=== PATIENT | female | born 1995 | race Caucasian/White ===

== ENCOUNTER → 2016-09-08 | Outpatient (REF) | LOC: COL.CARD 15:06 | DX: R00.2 Palpitations (principal) ==

== ENCOUNTER → 2017-01-18 | Outpatient (REF) ==
[2017-01-18 19:55] LABS: THYROID STIMULATING HORMONE 1.79 uIU/mL (0.465-4.680)
== END ==
LOC: ZLAB.WCH 18:51
PROVIDERS: Nurse Practitioner Family
DX: Z01.89 Encounter for other specified special examinations (principal)

== ENCOUNTER → 2017-10-03 | Outpatient (REF) | LOC: ZLAB.WCH 18:12 | DX: Z01.89 Encounter for other specified special examinations (principal) ==

== ENCOUNTER 2021-12-09 13:23 | Inpatient (IN) | payer MEDICAID ==
[~2021-12-09] VITALS: Ht 154.9 cm; Wt 63.0 kg
[2021-12-09] MEDS ORDERED: NORCO 325 MG-51 TAB PO (13:43)
[2021-12-09] MEDS ORDERED: EFFEXOR-XR150 MG PO (13:43)
[2021-12-09 13:55] VITALS: BP 115/63; PULSE 77; TEMP 97.5
[2021-12-09 15:57] VITALS: BP 117/70; PULSE 73; TEMP 98.2
--- NOTE | 2021-12-09 18:56 | NUR ---
RECEIVED CHANGE OF SHIFT REPORT FROM DAY SHIFT RN.
[2021-12-09 19:33] VITALS: BP 116/61; PULSE 82; TEMP 99.1
[2021-12-09 23:14] VITALS: BP 109/62; PULSE 82; TEMP 98.4
[2021-12-10] VITALS (365 sets, daily range): BP systolic 108–153; BP diastolic 61–84; PULSE 85–170; TEMP 98.3–102.4; O2SAT 94–100
--- NOTE | 2021-12-10 07:10 | NUR ---
CHANGE OF SHIFT REPORT GIVEN TO DAY SHIFT TONIA INMAN.
--- NOTE | 2021-12-10 07:56 | NUR ---
Patient reports elevated pain, morphine for pain per orders. She reports toradol not relieving pain. Clear liquids without nausea. kpad provided for her discomfort. rounded plan of care reviewed.
--- NOTE | 2021-12-10 08:35 | NUR ---
Call from [facility], vital signs change made aware. Febrile,tachycardia. Blood pressure stable. Patient nauseated. Shivering. Pale in color.
--- NOTE | 2021-12-10 08:38 | NUR ---
Patient had a change in status. Called , no answer. message left
--- NOTE | 2021-12-10 08:40 | NUR ---
Danyel cab[facility]owarehouse traffic supervisor called to room 350. She was made aware of patient status. She called CAT call, ICU charge nurse Radha to assist with patient cares.
--- NOTE | 2021-12-10 08:52 | NUR ---
Called office nurse called and made her aware that I needed to given update to . She was to [facility].
--- NOTE | 2021-12-10 09:02 | NUR ---
Hospitalist at bedside. Pharmacy at bedside. Orders being obtained. RT at bedside. Lab attempting lab draw. Darya remain at bedside caring for patient.
--- NOTE | 2021-12-10 09:02 | NUR ---
Patients experienced a decline in status this morning. SW contacted the patient's who states that he will make arrangements for their children and make his way up here. supervisor cutting and sewing room notified.
--- NOTE | 2021-12-10 09:07 | NUR ---
made aware of Patient being transferred to ICU 2. I spoke with Basia about needing stent placment, she was already aware, spoke with her. I also talked with Quinn HERNANDEZ He is aware lab was unable to draw the labs.
[2021-12-10 09:39] LABS: HEMOGLOBIN 10.2 g/dl (12.5-16.0); MEAN CELL VOLUME 88 fl (80.0-100.0); MEAN CORPUSCULAR HEMOGLOBIN 29 pg (27-31); MEAN CORPUSCULAR HGB CONC 33 g/dl (33.0-37.0); MEAN PLATELET VOLUME 10.2 fl (7.4-10.4); PLATELET COUNT 144 K/mm3 (130-400); RED BLOOD COUNT 3.52 M/mm3 (4.10-5.30); REDCELL DISTRIBUTION WIDTH-CV 13.2 % (11.5-14.5)
[2021-12-10 09:40] LABS: HEMATOCRIT 30.8 % (37.0-47.0)
[2021-12-10 09:55] LABS: CALCIUM 8.5 mg/dL (8.4-10.2); CREATININE, serum 0.65 mg/dL (0.57-1.11); POTASSIUM 3.3 mmol/L (3.5-4.5)
--- NOTE | 2021-12-10 10:47 | NUR ---
0850- CALLED TO HELP IN ROOM 350 FOR TACHYCARDIA AND POSSIBLE SEPSIS. PT WAS AX0X4, TEMP 102, HR 170'S, BP 130'S, AND 97% ON RA. EKG DONE AND PT PLACED ON TELE SHOWING SVT. LABS ORDER PER DR BAUMAN. IV METOPROLOL AND IVF GIVEN. PT'S HR DOWN TO 130 AFTER METOPROLOL. PT TRANSFERED TO ICU 2. CONNER PLACED, URINE SENT, COVID SENT, PICC PLACED AND LABS DRAWN. BEDSIDE AND PLAN TO TAKE TO OR FOR STENT. ABX HUNG AFTER BC DRAWN. PT TAKEN TO OR AT 0941.
--- NOTE | 2021-12-10 11:30 | NUR ---
Patient has returned from OP. PICC sterile dressing change done with insertion site cleansed with chloraprep x 1, catheter pulled back to 3 cm marking on catheter. CHG dressing applied, skin prep, stat lock, and tegaderm applied.
--- NOTE | 2021-12-10 11:39 | NUR ---
1100-PT BACK FROM OR. PT IS AXOX4. PT'S VSS. PT SR AT 100. PT STATES PAIN IS MUCH BETTER. 1140-PT GIVEN BREAST PUMP FROM OB.
[2021-12-10 16:38] LABS: COLLECTION METHOD IN
[2021-12-10 16:51] LABS: MUCOUS Present (NOT PRESENT); SQUAMOUS EPITHELIAL None Seen /hpf (0-10); URINE BACTERIA None Seen /hpf (NONE SEEN); URINE RBC >50 /hpf (0-2)
[2021-12-10 16:53] LABS: URINE APPEARANCE Cloudy (CLEAR/HAZY); URINE BLOOD 3+ (NEGATIVE); URINE COLOR Yellow (YELLOW); URINE GLUCOSE Negative (NEGATIVE); URINE KETONE Negative (NEGATIVE); URINE NITRATE Negative (NEGATIVE); URINE PROTEIN(semi-quant) 1+ (NEGATIVE); URINE UROBILINOGEN 0.2 E.U/dL (0.2-1.0)
--- NOTE | 2021-12-10 17:49 | NUR ---
1710-REPORT CALLED TO BOGDAN INMAN. ALL QUESTIONS ANSWERED. PT CHANGED TO TELE BOX. PT AMBULATED TO WHEELCHAIR. PT TRANSFERED TO [facility] WITH ALL BELONGINGS AND FAMILY. BOGDAN INMAN MEET BEDSIDE.
--- NOTE | 2021-12-10 17:50 | NUR ---
Pt just arrived up to the floor from ICU. She is alert and oriented with minimal pain complaints. Pt does have boykin catheter to dependent drainage, very little output at this time due to just being emptied. Heart rate upper 90s at this time per Tele. Lung sound clear and bowel sounds active. Picc line to right upper arm with fluids infusing. Pt on general diet, reports that she has family bringing her in some food. SCDs on bilaterally. Gave pt fresh ice water. ICU reported temp and tylenol given, temp is now WNL. Call light within reach, will continue to monitor
--- NOTE | 2021-12-10 19:30 | NUR ---
RECEIVED CHANGE OF SHIFT REPORT FROM DAY SHIFT RN.
--- NOTE | 2021-12-10 22:29 | NUR ---
PATIENT C/O FEELING CHILLING AND SHAKING, REQUESTED AND GIVEN TYLENOL WITH TORADOL FOR C/O BACK & CHEST AREA ACHING. TEMP CHECKED AT 98.8 WITH RECHECK CURRENTLY AT 100.1 WITH PATIENT STILL C/O FEELING CHILLING AND SHAKING, BUT CHEST/BACK ACHING HAS IMPROVED "SOME". SKIN WARMER TO TOUCH.
--- NOTE | 2021-12-10 22:33 | NUR ---
INFORMED HOSP PROVIDER HOME HEALTH CLINICAL LIAISON REGARDING PATIENT'S CURRENT STATUS WITH RECOMMENDATIONS TO TRY COOL WET WASHCLOTHS (HAD TORADOL AND TYLENOL GIVEN) TO HELP WITH CHILLS/TEMP COMPLAINTS.
--- NOTE | 2021-12-10 23:09 | NUR ---
DIANNA/LAB CALLED WITH BLOOD CULTURE RESULTS OF 1 BOTTLE OF GRAM NEG RODS/E.COLI, RESULTS CALLED TO HOSP ONCALL PROVIDER. PROVIDER TO NEW ORDERS.
[2021-12-11] VITALS (13 sets, daily range): BP systolic 109–144; BP diastolic 63–84; PULSE 80–132; TEMP 98–102.2
--- NOTE | 2021-12-11 00:20 | NUR ---
PATIENT C/O SOB WITH CHEST TIGHTNESS. PATIENT AGREED TO MS DOSING AT THIS TIME. R.T. INFORMED OF SOB, O2 PER NC APPLIED TO NARES, AT 2LPM.
--- NOTE | 2021-12-11 00:35 | NUR ---
PATIENT REPORTS AFTER MS GIVEN, SOB/CHEST TIGHTNESS IMPROVING, DENIES ANY OTHER NEEDS AT THIS TIME.
--- NOTE | 2021-12-11 05:07 | NUR ---
PATIENT REPORTS GENERALIZED ACHING AND CHILLS. TEMP CHECKED AT 98.8 DEGREES. TYLENOL GIVEN, DENIES ANY OTHER NEEDS, SKIN WARM TO TOUCH AND DRY
--- NOTE | 2021-12-11 05:12 | NUR ---
INFORMED ONCALL HOSP OF PATIENT COMPLAINTS, TELE OBSERVED AT ELEVATED HR OT 120'S TO 130'S
--- NOTE | 2021-12-11 06:25 | NUR ---
PATIENT REPORTS STILL HAVING CHILLING, REPORTED ALSO SHE IS FEELING LIKE HER TEMPERATURE IS UP, SEE Perfect FOR VS TAKE, TEMP REGISTERED AT 99.9 DEGREES. PATIENT REPORTS STILL HAVING GENERALIZED ACHING. CALLED DR. BAUMAN WITH PATIENT'S CURRENT STATUS, ORDERS GIVEN, SEE [employer] FOR ORDERS.
--- NOTE | 2021-12-11 07:36 | NUR ---
CHANGE OF SHIFT REPORT GIVEN TO DAY SHIFT RNPURVI.
--- NOTE | 2021-12-11 08:03 | NUR ---
DALILA YOUNG'D PER ORDER
--- NOTE | 2021-12-11 10:37 | NUR ---
SW met with patient to complete intake. Patient provides that she lives in [facility] with her Cristi [phone] whom she appointed as DPOA/HC during intake. Documentation reviewed, complete, signed and signature witnessed. Documenation placed in chart and copies made for patient. Patient states that she does not utilize DME, independent with ADL's, and does not utilize HH services as this time. PCP is Rafal, and pharmacy is [facility]. DC plan is home. SW will continue to follow DC plan: home
--- NOTE | 2021-12-11 13:06 | NUR ---
Cashier Receptionist rounds: Cashier Receptionist visit completed. Conversation and prayer. Patient thanked show host or hostess for visit.
--- NOTE | 2021-12-11 14:25 | NUR ---
PT REPORTS CHEST PAIN WITH STABBING SENSATION 5/10, VS TAKEN AND STABLE, EKG OBTAINED, TROPONIN DRAWN, DR. BAUMAN NOTIFIED, NO NEW ORDERS
--- NOTE | 2021-12-11 14:26 | NUR ---
PT GIVEN MORPHINE PER ORDER FOR CHEST PAIN, PT NOW REPORTS CHEST PAIN IS RESOLVED
--- NOTE | 2021-12-11 20:30 | NUR ---
Pt lying down in bed. A&O x4. VSS. Shift assessment completed. Food tray intact, pt with no appetite for dinner. She reports chills. T is 98.5 at this moment. Pt verbalizes that usually fever starts building up after chills. Will continue monitoring. PICC line on right upperarm CDI, pt reports feeling tenderness when lifting right arm. Call light within reach.
--- NOTE | 2021-12-11 21:40 | NUR ---
T 100.7 at this moment. Pt reported feeling disconfort to RN working along with this HYDRO MECHANIC.
--- NOTE | 2021-12-11 22:40 | NUR ---
T 102.2 at this moment. RN aware.
[2021-12-12] VITALS (8 sets, daily range): BP systolic 111–135; BP diastolic 64–88; PULSE 77–91; TEMP 97.9–98.5
--- NOTE | 2021-12-12 00:30 | NUR ---
PCT reported to RN and this GRINDING MACHINE OPERATOR that T dropped to 98.5. She also expressed feeling better at this moment. She verbalizes some pain on chest. Pt getting ready to sleep. Will continue monitoring. Call light within reach.
--- NOTE | 2021-12-12 05:31 | NUR ---
Pt slept almost through the entire night. VSS. HR remained NS between 60-80 most of the night. Last temperature 97.9 No pain or disconfort were voiced at this time. Call light within reach.
[2021-12-12 06:34] LABS: BASO % 0.3 % (0.0-2.0); EOS # 0.1 K/mm3 (0.0-0.7); EOS % 1.9 % (0.0-4.0); GRAN # 4.6 K/mm3 (1.4-6.5); GRAN % 67.7 % (42.2-75.2); LYMPH # 1.4 K/mm3 (1.2-3.4); LYMPH % 20.1 % (20.0-51.0); MEAN CELL VOLUME 91 fl (80.0-100.0); MEAN CORPUSCULAR HGB CONC 32 g/dl (33.0-37.0); MEAN PLATELET VOLUME 11.1 fl (7.4-10.4); MONO # 0.7 K/mm3 (0.1-0.6); MONO % 9.7 % (1.7-9.3); PLATELET COUNT 106 K/mm3 (130-400); RED BLOOD COUNT 3.01 M/mm3 (4.10-5.30); REDCELL DISTRIBUTION WIDTH-CV 13.5 % (11.5-14.5)
[2021-12-12 06:48] LABS: HEMATOCRIT 27.5 % (37.0-47.0); HEMOGLOBIN 8.8 g/dl (12.5-16.0); MEAN CORPUSCULAR HEMOGLOBIN 29 pg (27-31)
[2021-12-12 06:51] LABS: CALCIUM 7.9 mg/dL (8.4-10.2); CREATININE, serum 0.54 mg/dL (0.57-1.11); POTASSIUM 3.1 mmol/L (3.5-4.5)
--- NOTE | 2021-12-12 08:45 | NUR ---
Pt doing well this morning. She has no pain complaints during morning assessment. Encouraged pt to get up and walk in the halls at least every couple of hours. INT'd IV fluids per order. Pt up in the chair for breakfast. No other needs or complaints, will continue to monitor
--- NOTE | 2021-12-12 10:30 | NUR ---
Pt having no complaints and reports that she feels good. Encouraged pt to go for a walk in the halls by 1100. Pt nodded in agreement. No other needs or questions, will continue to monitor
[2021-12-12] MEDS ORDERED: LEVAQUIN 5500 MG/TA1 PO (11:41)
--- NOTE | 2021-12-12 17:05 | NUR ---
Pt continues to do well with no complaints. SO remains present in the room with her. PT did have several visitors throughout the day.
--- NOTE | 2021-12-12 20:30 | NUR ---
Pt lying down in bed. Mom at bedside. A&O x4. VSS. Pt states feeling much better. Shift assessment completed. No needs or concerns at this moment. Pt states feeling a light headache on back of her head. Pt gets encouraged to ambulate or take a shower if she was interested. Call light within reach.
--- NOTE | 2021-12-12 21:30 | NUR ---
Pt requested assistance to get in the shower. She also ambulated in the unit. and reported feeling better after. Call light within reach.
[2021-12-13 04:26] VITALS: BP 127/80; PULSE 66; TEMP 97.8
[2021-12-13 07:23] VITALS: BP 140/89; PULSE 72; TEMP 98.5
--- NOTE | 2021-12-13 08:45 | NUR ---
Pt. sitting up in bed. Pt. is A&OX3, assessment complete. PICC to rt. upperarm patent. Pt. denies pain or other needs, call light within reach.
--- NOTE | 2021-12-13 11:00 | NUR ---
Pt. orders to d/c PICC, [facility] services notified. PICC removed by [facility].
--- NOTE | 2021-12-13 12:00 | NUR ---
Pt. ready for discharge. PICC was discontinued by [facility]. Reviewed follow-up appointments, new medications, home med rec, education, and health summary. Pt. voices understanding and denies questions. Pt. dressed and escorted out by HENNY Crowell.
== END 2021-12-13 12:15 | disposition home or self-care (01) | DRG 854 ==
LOC: SURG 13:23 → ICU 13:23 → SURG 12-10 09:52 → ICU 12-10 09:53 → SURG 12-10 17:30
PROVIDERS: Internal Medicine; ADMIT Urology
PROC: 02H633Z Insertion of Infusion Device into Right Atrium, Percutaneous Approach (ICD-10-PCS; 2021-12-10)
PROC: 0T778DZ Dilation of Left Ureter with Intraluminal Device, Via Natural or Artificial Opening Endoscopic (ICD-10-PCS; principal; 2021-12-10 09:45)
PROC: BT1F1ZZ Fluoroscopy of Left Kidney, Ureter and Bladder using Low Osmolar Contrast (ICD-10-PCS; 2021-12-10 09:45)
DX: A41.50 Gram-negative sepsis, unspecified (principal); I47.1 Supraventricular tachycardia; N13.30 Unspecified hydronephrosis; F41.9 Anxiety disorder, unspecified; N61.0 Mastitis without abscess; J45.909 Unspecified asthma, uncomplicated; B96.20 Unspecified Escherichia coli [E. coli] as the cause of diseases classified elsewhere; Z88.2 Allergy status to sulfonamides; Z20.822 Contact with and (suspected) exposure to COVID-19; Z23 Encounter for immunization
CPT/HCPCS: A4314; C1751; C1769; C2617; G0378; J0696; J1885; J2270; J2370; J2405; J2543; J2704; J3010; J3370; J7030; J7050; Q9966